=== PATIENT | male | born 1950 | race Caucasian/White ===

== ENCOUNTER → 2019-04-22 | Outpatient (CLI) | payer MEDICARE ==
--- NOTE | 2019-04-22 10:57 | US ---
EXAMINATION TYPE: US duplex aorta DATE OF EXAM: 04/22/2019 COMPARISON: NONE CLINICAL HISTORY: Z13.6 Screening for Abd Aortic Aneurysm. Screening per order for cardiovascular mercedes dies. EXAM MEASUREMENTS: Abdominal Aorta: Proximal: 3.2cm Transverse Mid: 2.5cm Transverse Distal: 2.9cm Transverse Bifurcation: Right Common Iliac artery = 1.4cm A/P; Left Common Iliac Artery = 1.7cm A/P. Mild intimal wall thickening is most notable distally and into bilateral common iliac artery. Ectatic aorta is noted. Proximal aorta size is mildly dilated as well as distally and into Common Iliac Nannette ela which measure greater than 1.25cm A/P. IMPRESSION: 1. Mild proximal abdominal aortic aneurysm measuring up to 3.2 cm. 2. Ectasia of the distal abdominal aorta approaching criteria for aneurysmal dilatation. 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 3. Atheromatous changes throughout, most prominent distally.
== END | disposition home or self-care (01) ==
LOC: RADUSWWP 09:23
PROVIDERS: ATTEND Family Medicine
DX: Z13.6 Encounter for screening for cardiovascular disorders (principal); I71.4 Abdominal aortic aneurysm, without rupture; I70.90 Unspecified atherosclerosis; I72.3 Aneurysm of iliac artery
CPT/HCPCS: 93979

== ENCOUNTER 2019-06-11 08:02 | Day surgery (SDC) | payer MEDICARE ==
[2019-06-07 11:35] VITALS: BMI 29.1
[~2019-06-11 08:02] MED LIST: LACTATED RINGERS 1,000 ML IV SCH
[2019-06-11 08:30] VITALS: TEMP 97.6
[2019-06-11] MEDS ORDERED: MIDAZOLAM 2 MG/2 ML VIAL ONE (09:03)
[2019-06-11] MEDS ORDERED: PROPOFOL 10 MG/ML 20 ML VIAL IV ONE (09:03)
[2019-06-11] MEDS ORDERED: fentaNYL (PF) 50 MCG/ML 2 ML AMP ONE (09:03)
--- NOTE | 2019-06-11 09:43 | P.PCN ---
Date of Procedure: 06/11/19 Description of Procedure: BRIEF HISTORY: Patient is a 68-year-old male presenting for outpatient colonoscopy for follow- up of abnormal findings on Cologard/positive Cologard. He denies any change in bowel habits, blood per rectum or abdominal pain. No family history of colon cancer. PROCEDURE PERFORMED: Colonoscopy with polypectomy. PREOPERATIVE DIAGNOSIS: Positive Cologard/abnormal finding on Cologard, no prior colonoscopy. ESTIMATED BLOOD LOSS: Minimal. IV sedation per Anesthesia. PROCEDURE: After informed consent was obtained, the patient, was brought into the endoscopy unit. IV sedation was administered by Anesthesia under continuous monitoring. Digital rectal examination was normal. Initially the Olympus CF-190 flexible video colonoscope was then inserted in the rectum, gradually advanced into the cecum without any difficulty. Careful examination was performed as the scope was gradually being withdrawn. Ileocecal valve and the appendiceal orifice were visualized and appeared normal. The terminal ileum was intubated and appeared normal. Prep was excellent. Mucosa of the cecum, ascending colon, transverse colon, descending colon, sigmoid colon, and rectum appeared normal. A few scattered diminutive sigmoid diverticula were noted. 2 diminutive polyps measur ing 2 mm in size removed from the transverse colon and sigmoid colon with cold forcep polypectomy. Flat 10 mm rectal polyp and a flat 4 mm rectal polyp removed by cold snare polypectomy. Retroflexion was performed in the rectum and no lesions were seen. The patient tolerated the procedure well. IMPRESSION: 2 diminutive polyps removed with cold forceps from the sigmoid colon and transverse colon. 2 flat rectal polyps removed with cold snare polypectomy. Mild sigmoid diverticulosis. RECOMMENDATIONS: Findings of this examination were discussed with the patient and his . Okay to resume diet. Okay to resume medications. Await pathology from polypectomies. Would recommend repeat colonoscopy in 3 years for high-risk colon polyps pending pathology from polypectomies.
[2019-06-11 09:45] VITALS: RESP 16
[2019-06-11 10:11] VITALS: BP 136/87; PULSE 64
== END 2019-06-11 10:35 | disposition home or self-care (01) ==
LOC: ORWHC2ENDO 08:02
PROVIDERS: ATTEND Internal Medicine
DX: R19.5 Other fecal abnormalities (principal); D12.5 Benign neoplasm of sigmoid colon; D12.3 Benign neoplasm of transverse colon; D12.8 Benign neoplasm of rectum; K57.30 Diverticulosis of large intestine without perforation or abscess without bleeding; F17.210 Nicotine dependence, cigarettes, uncomplicated; Z98.890 Other specified postprocedural states
CPT/HCPCS: 88305; 45380; 45385; J2250; J3010; J2704

== ENCOUNTER → 2020-06-15 | Outpatient (CLI) | payer MEDICARE ==
[~2020-06-15] MED LIST changes: -LACTATED RINGERS 1,000 ML IV SCH; +REGADENOSON 0.4 MG/5 ML SYRINGE IV PRN
--- NOTE | 2020-06-15 10:39 | P.STRESS ---
- Stress Test Note Stress Test Results/Findings: Exam Performed: NM stress lexiscan cardiolite Exam Date: 06/15/20 Reason for Exam: Abnormal EKG Height: 6 ft Weight: 98.43 kg Protocol: Lexiscan Stage: na Duration of Exercise: na Resting Heart Rate: 60 Resting Blood Pressure: 152/95 Maximum Achieved Heart Rate: 88 Maximum Achieved Blood Pressure: 176/103 85% PMHR: 130 100% PMHR: 153 METS: na Technologist Comment: Stress Test Results/Findings: This is a 69-year-old gentleman being evaluated because of abnormal EKG. He has history of hypertension and hypercholesterolemia. Stress data: Baseline EKG showed sinus rhythm with T-wave inversions in inferior leads and lateral leads with mild intraventricular conduction delay. A standard dose of Lexiscan was infused. Baseline blood pressure is 150/95, pulse rate of 60. A peak heart rate of about 87 was obtained with the blood pressure of about 168/99. EKGs taken during or after the infusion did not reveal any significant changes from the baseline. Final impression #1. Nondiagnostic Lexiscan stress test, because of baseline EKG changes #2. Report amended that images to be given by the radiologist
--- NOTE | 2020-06-15 15:02 | NM ---
EXAMINATION TYPE: NM stress lexiscan cardiolite DATE OF EXAM: 06/15/2020 COMPARISON: NONE HISTORY: Abnormal EKG, R 94.31 TECHNIQUE: After the intravenous administration of 9.9 mCi Tc 99m Sestamibi - Cardiolite resting SPE CT images acquired 55 minutes post injection. The patient received 0.4mg Lexiscan, 24.2 mCi Tc 99m Sestamibi - Stress images obtained [address] injection FINDINGS: Review of stress and rest SPECT images demonstrates decreased apical uptake on stress and rest images , some decreased uptake present along the inferior wall on stress as compared to rest images. Gated analysis shows normal wall motion with an estimated left ventricular ejection fraction of 51 %. 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 Difficult to exclude myriam or apical infarct. Report relayed to Gela in the [facility] [place] at the time of interpretation of the guillermina martel telephonically.
== END | disposition home or self-care (01) ==
LOC: RADNMMAIN 07:55
PROVIDERS: ATTEND Family Medicine
DX: I25.2 Old myocardial infarction (principal); R94.31 Abnormal electrocardiogram [ECG] [EKG]
CPT/HCPCS: 93017; 78452; A9500; J2785

== ENCOUNTER 2021-04-07 00:06 | Emergency (ER) | payer MEDICARE ==
[2021-04-07 00:21] VITALS: BP 178/100; PULSE 88; RESP 18; TEMP 97.9
--- NOTE | 2021-04-07 00:42 | XR ---
EXAMINATION TYPE: XR chest 2V DATE OF EXAM: 04/07/2021 COMPARISON: 11/10/2012 HISTORY: Memory loss. Cough TECHNIQUE: 2 views FINDINGS: There is no heart failure nor confluent pneumonic infiltrate. Thoracic aorta is atheromatou s. There is no pleural effusion. Bony thorax is intact. IMPRESSION: No active cardiopulmonary disease. No change.
[2021-04-07] MEDS ORDERED: DEXAMETHASONE SOD PHOSPHATE 10 MG/ML 1 ML VIAL IM STA (01:22)
--- NOTE | 2021-04-07 01:26 | ED ---
URI HPI - General Chief Complaint: Upper Respiratory Infection Stated Complaint: SOB, sore throat Time Seen by Provider: 04/07/21 01:04 Source: patient, RN notes reviewed Mode of arrival: ambulatory Limitations: no limitations - History of Present Illness Initial Comments: Patient states he's had a runny nose, nasal congestion, postnasal drainage, sore throat for 2 or 3 days. Patient states when he a supine he feels like he is having difficulty breathing. However he does have a sore throat with some soreness with swallowing. However no difficulty swallowing. Patient states his symptoms are not in his chest. There is no chest pain. No productive cough. Patient is fully vaccinated against COVID-19. No headache, no fever or chills, no changes in vision or hearing, no sore throat or difficulty with speech, no neck pain, no chest pain or shortness of breath, no abdominal pain, no nausea or vomiting, no changes in urination or bowel movements, no numbness or tingling, no extremity pain, no skin rashes or lesions. - Related Data Previous Rx's Medication Instructions Recorded Oxymetazoline 0.05% Nasl [place] 2 spray EA NOSTRIL BID 3 Days #15 04/07/21 [Afrin 0.05% Nasal [place]] ml Allergies Allergy/AdvReac Type Severity Reaction Status Date / Time No Known Allergies Allergy Verified 04/07/21 00:21 Review of Systems ROS Statement: Those systems with pertinent positive or pertinent negative responses have been documented in the HPI. ROS Other: All systems not noted in ROS Statement are negative. Past Medical History Past Medical History: Hypertension Additional Past Medical History / Comment(s): SEASONAL ALLERGIES. + COLOGARD TEST History of Any Multi-Drug Resistant Organisms: None Reported Additional Past Surgical History / Comment(s): HAD JAW SET ABOUT 30-40 YRS AGO UNDER IV ANESTHESIA Past Anesthesia/Blood Transfusion Reactions: No Reported Reaction Past Psychological History: No Psychological Hx Reported Smoking Status: Light tobacco smoker Past Alcohol Use History: Daily Past Drug Use History: None Reported - Past Family History Mother Family Medical History: No Reported History General Exam Limitations: no limitations General appearance: alert, in no apparent distress Head exam: Present: atraumatic, normocephalic, normal inspection Eye exam: Present: normal appearance, PERRL, EOMI. Absent: scleral icterus, conjunctival injection, periorbital swelling ENT exam: Present: normal exam, normal oropharynx, mucous membranes moist, TM's normal bilaterally, normal external ear exam Expanded Ear exam: Present: normal external inspection. Absent: auricular hematoma, auricular trauma Mouth exam: Present: normal external inspection, tongue normal. Absent: drooling, trismus, muffled voice, tongue elevation, laceration Teeth exam: Present: normal inspection Throat exam: tonsillar erythema. negative: tonsillomegaly, tonsillar exudate, R peritonsillar mass, L peritonsillar mass Neck exam: Present: normal inspection. Absent: tenderness, meningismus, l ymphadenopathy Respiratory exam: Present: normal lung sounds bilaterally. Absent: respiratory distress, wheezes, rales, rhonchi, stridor Cardiovascular Exam: Present: regular rate, normal rhythm, normal heart sounds. Absent: systolic murmur, diastolic murmur, rubs, gallop, clicks GI/Abdominal exam: Present: soft, normal bowel sounds. Absent: distended, tenderness, guarding, rebound, rigid Extremities exam: Present: normal inspection, full ROM, normal capillary refill. Absent: tenderness, pedal edema, joint swelling, calf tenderness Back exam: Present: normal inspection Neurological exam: Present: alert, oriented X3, CN II-XII intact Psychiatric exam: Present: normal affect, normal mood Skin exam: Present: warm, dry, intact, normal color. Absent: rash Course Vital Signs 04/07/21 00:18 Temperature 97.9 F Pulse Rate 88 Respiratory 18 Rate Blood Pressure 178/100 O2 Sat by Pulse 96 Oximetry Medical Decision Making - Medical Decision Making Patient presents with symptoms consistent with a viral upper respiratory infection with postnasal drainage. There is minimal erythema to the posterior pharynx. No evidence of peritonsillar abscess. No evidence of intraoral cellulitis. Patient's airway is patent. Patient was told to return to the ER for any signs or symptoms worsen. Told to return immediately if any other problems arise. All questions answered. Treatment plan discussed. Patient in agreement - Lab Data Lab Results 04/07/21 04/07/21 Range/Units 00:22 01:30 Coronavirus (PCR) Not Detected (Not Detectd) Group A Strep Rapid Negative (Negative) Disposition Clinical Impression: Viral URI, Post-nasal drainage Disposition: HOME SELF-CARE Condition: Good Instructions (If sedation given, give patient instructions): Upper Respiratory Infection (ED) Additional Instructions: Follow-up with your regular physician as directed. Return to the ER immediately if any symptoms worsen, new symptoms arise, or any other problems develop. Make sure you call your regular doctor. Your blood pressure only to be monitored as it was elevated today. Do not take any [id number] remedies that contain pseudoephedrine. Prescriptions: Oxymetazoline 0.05% Nasl [place] [Afrin 0.05% Nasal [place]] 2 spray EA NOSTRIL BID 3 Days #15 ml Is patient prescribed a controlled substance at d/c from ED?: No Referrals: Red Monroy MD [Primary Care Provider] - 1-2 days Time of Disposition: 02:05
== END 2021-04-07 02:34 | disposition home or self-care (01) ==
LOC: EC 00:06
DX: J06.9 Acute upper respiratory infection, unspecified (principal); R09.82 Postnasal drip; I10 Essential (primary) hypertension; F17.290 Nicotine dependence, other tobacco product, uncomplicated; Z20.822 Contact with and (suspected) exposure to COVID-19
CPT/HCPCS: 99285; 96372; 87081; 87430; 87635; 71046; J1100